=== PATIENT | female | born 1955 | race Caucasian/White ===

== ENCOUNTER → 2017-05-28 15:39 | Outpatient (CLI) | payer MEDICARE, MEDICAID, SELFPAY ==
--- NOTE | 2017-05-28 16:05 | RAD_ITS ---
STUDY: X-RAY - PELVIS AND RIGHT HIP REASON FOR EXAM: Female, 62 years old. Pain. Several falls. TECHNIQUE: Radiological exam, hip, unilateral, with pelvis when performed; 2 or 3 views. COMPARISON: None. FINDINGS: There is a non-specific bowel gas pattern. Normal visualized soft tissue structures. Normal bilateral iliac wings, sacroiliac joints and visualized sacrum. Normal bilateral superior and inferior pubic rami. Normal pubic symphysis. Normal bilateral ischial tuberosities. Normal visualized femoral head. Normal acetabulum. Normal hip joint. Calcifications along the surface of the greater trochanter may be from chronic trochanteric bursitis. RAD/Hip 2-3 Views with Pelvis IMPRESSION: No acute fracture or dislocation. Electronically Signed: Royal Mansfield MD at 0:01 EST , Service support ,
--- NOTE | 2017-05-28 16:06 | RAD_ITS ---
STUDY: X-RAY - LUMBAR SPINE REASON FOR EXAM: Female, 62 years old. Low back pain. Right hip pain. Falls. TECHNIQUE: 5 view(s) of the lumbar spine were obtained. COMPARISON: None FINDINGS: Normal lumbar lordosis. There is no substantial scoliosis. There is a normal alignment of the vertebrae. There is multilevel endplate spondylosis of the lumbar vertebrae. There is multi-level degenerative disc disease with multi-level disc space narrowing. There is no demonstrated fracture. The soft tissue structures are unremarkable. RAD/L/S Spine Min 4 Views IMPRESSION: Degenerative changes of the spine, as detailed above. No acute abnormality. Electronically Signed: Royal Mansfield MD at 23:59 EST , Service support ,
[2017-05-28 17:41] LABS: Absolute Neutrophil Count 3.2 X10^3/uL (2.0-7.7); Basophil# 0.03 X10^3/uL; Basophil% 0.4 % (0-1); Eosinophil# 0.14 X10^3/uL; Hematocrit 40.1 % (37-47); Hemoglobin 12.8 g/dl (12.0-15.0); Lymphocyte % 43.4 % (19-41); Mean Corp Hgb Conc 31.9 g/gl (32-36); Mean Corpuscular Hgb 30.8 pg (27.0-32.0); Mean Corpuscular Volume 96.6 fL (81-99); Mean Platelet Vol. 10.8 fl (6.2-12.0); Monocyte# 0.57 X10^3/uL; Monocyte% 8.2 % (0-10); Neutrophil # 3.17 X10^3/uL (2.7-7.7); Platelet Count 263 K/mm3 (150-450); RBC Distribution Width CV 12.6 % (11.6-14.6); RBC Distribution Width SD 43.4 fl (35.1-43.9); Red Blood Count 4.15 M/mm3 (4.2-5.4); White Blood Count 6.9 K/mm3 (4.4-11.0)
[2017-05-28 17:55] LABS: POSITIVE COUNT NO; POSITIVE DIFFERENTIAL NO; POSITIVE MORPHOLOGY NO
[2017-05-28 18:07] LABS: ALB/GLOB Ratio 1.2 RATIO (0.9-2.4); AST(SGOT) 15 U/L (15-37); Alanine Aminotransfer ALT/SGPT 26 U/L (13-56); Albumin, Serum 3.8 g/dL (3.2-5.0); Alkaline Phosphatase 110 U/L (45-117); Anion Gap 7 (5-15); BUN 20 mg/dL (7-18); BUN/Creat Ratio 18.5 RATIO (10-20); CRP 3.26 mg/L (0.0-3.0); Calcium,Total 8.7 mg/dL (8.5-10.1); Chloride 109 mmol/L (98-107); Creatinine, Serum 1.08 mg/dL (0.55-1.02); EST Glomerular Filtration Rate 54 mL/min (>60); Est Glom Filt Rate - Afr Amer 66 mL/min (>60); Globulin 3.3 g/dL (2.2-4.2); Glucose 83 mg/dL (74-106); Potassium 4.6 mmol/L (3.5-5.1); Protein, Total 7.1 g/dL (6.4-8.2); Sodium Level 139 mmol/L (136-145)
[2017-05-28 20:48] LABS: Erythrocyte Sedimentation Rate 6 mm/hr (0-30)
== END ==
PROVIDERS: Family Provider Family Medicine; PCP Family Medicine; Visit Provider Family Medicine
DX: M47.896 Other spondylosis, lumbar region (principal); M51.36 Other intervertebral disc degeneration, lumbar region; M48.061 Spinal stenosis, lumbar region without neurogenic claudication; M25.551 Pain in right hip; D72.9 Disorder of white blood cells, unspecified; Z51.81 Encounter for therapeutic drug level monitoring; Z79.899 Other long term (current) drug therapy
CPT/HCPCS: 36415; 72110; 73502; 80053; 85025; 85652; 86140

== ENCOUNTER → 2017-06-10 15:11 | Outpatient (CLI) | payer MEDICARE, MEDICAID, SELFPAY ==
--- NOTE | 2017-06-10 15:51 | MRI_ITS ---
STUDY: MRI LUMBAR SPINE WITHOUT CONTRAST REASON FOR EXAM: Female, 62 years old. RADICULOPATHY, RT LEG NUMBNESS, FREQUENT FALLS TECHNIQUE: Standardized fat and water weighted pulse sequences were obtained in the sagittal and axial planes. COMPARISON: None FINDINGS: T12-L1: Normal endplates. Normal disc height, hydration and morphology. Normal bilateral facet joints. Normal central canal and bilateral lateral recesses. Normal bilateral intervertebral neural foramina. Normal lumbar lordosis. There is no substantial scoliosis. Normal conus medullaris that terminates at the L1 level. L1-2: Endplate spondylosis. Decreased disc height and small circumferential disc bulge. Degenerative changes of the bilateral facet joints. Mild narrowing of the central canal and bilateral intervertebral neural foramina. L2-3: Endplate spondylosis. Decreased disc height and small circumferential disc bulge. Degenerative changes of the bilateral facet joints. Mild narrowing of the central canal and bilateral intervertebral neural foramina. L3-4: Endplate spondylosis. Decreased disc height and small circumferential disc bulge. Degenerative changes of the bilateral facet joints. Mild narrowing of the central canal and bilateral intervertebral neural foramina. L4-5: Endplate spondylosis. Decreased disc height and small circumferential disc bulge. Degenerative changes of the bilateral facet joints. 5 mm spondylolisthesis. Moderate narrowing of the central canal and bilateral intervertebral neural foramina. L5-S1: Endplate spondylosis. Decreased disc height and moderate circumferential disc bulge. Degenerative changes of the bilateral facet joints. Moderate narrowing of the central canal and severe narrowing of the bilateral intervertebral neural foramina. Normal visualized sacral ala. Normal visualized paraspinous soft tissue structures. MRI/Spine Lumbar (Routine) IMPRESSION: Multilevel degenerative changes, as described above. Electronically Signed: Afua Blanco MD at 7:02 EST Tel , Service support ,
== END ==
PROVIDERS: Family Provider Family Medicine; PCP Family Medicine; Visit Provider Family Medicine
DX: M54.16 Radiculopathy, lumbar region (principal); M47.897 Other spondylosis, lumbosacral region; M48.07 Spinal stenosis, lumbosacral region
CPT/HCPCS: 72148

== ENCOUNTER → 2017-12-02 13:37 | Outpatient (CLI) | payer MEDICARE, MEDICAID, SELFPAY ==
[2017-12-02 15:53] LABS: Vitamin B12 511 pg/mL (211-911)
[2017-12-02 15:59] LABS: ALB/GLOB Ratio 1.1 RATIO (0.9-2.4); AST(SGOT) 19 U/L (15-37); Alanine Aminotransfer ALT/SGPT 33 U/L (13-56); Albumin, Serum 3.8 g/dL (3.2-5.0); Alkaline Phosphatase 102 U/L (45-117); Anion Gap 13 (5-15); BUN 15 mg/dL (7-18); BUN/Creat Ratio 12.6 RATIO (10-20); Calcium,Total 8.4 mg/dL (8.5-10.1); Chloride 111 mmol/L (98-107); Creatinine, Serum 1.19 mg/dL (0.55-1.02); EST Glomerular Filtration Rate 49 mL/min (>60); Est Glom Filt Rate - Afr Amer 59 mL/min (>60); Globulin 3.4 g/dL (2.2-4.2); Glucose 111 mg/dL (74-106); Magnesium 1.8 mg/dL (1.6-2.6); Potassium 4.7 mmol/L (3.5-5.1); Protein, Total 7.2 g/dL (6.4-8.2); Sodium Level 142 mmol/L (136-145)
== END ==
PROVIDERS: Family Provider Family Medicine; PCP Family Medicine; Visit Provider Family Medicine
DX: Z51.81 Encounter for therapeutic drug level monitoring (principal); E53.8 Deficiency of other specified B group vitamins; M62.838 Other muscle spasm; R20.2 Paresthesia of skin
CPT/HCPCS: 36415; 80053; 82607; 83735

== ENCOUNTER → 2017-12-13 14:01 | Outpatient (CLI) | payer MEDICARE, MEDICAID, SELFPAY | PROVIDERS: Family Provider Family Medicine; PCP Family Medicine; Visit Provider Family Medicine | DX: M79.604 Pain in right leg (principal); I87.2 Venous insufficiency (chronic) (peripheral) | CPT/HCPCS: 93971 ==

== ENCOUNTER → 2018-02-14 13:04 | Outpatient (CLI) | payer MEDICARE, MEDICAID, SELFPAY ==
--- NOTE | 2018-02-14 13:09 | ADUL_ITS ---
Reason For Study: ATHEROSCLEROSIS W/ CLAUDICATION Right Velocities Common Iliac Artery, dist = 110 cm./sec. Common Femoral Artery, mid = 102 cm./sec. Supf Femoral Artery, prox = 111 cm./sec. Supf Femoral Artery, mid = 86 cm./sec. Supf Femoral Artery, dist. = 48 cm./sec. Profunda Femoral Artery = 58 cm./sec. Popliteal Artery, prox. = 48 cm./sec. Popliteal Artery, mid = 35 cm./sec. Popliteal Artery, dist = 46 cm./sec. Post. Tibial Artery, prox = 74 cm./sec. Post. Tibial Artery, mid = 61 cm./sec. Post. Tibial Artery, dist = 80 cm./sec. Peroneal Artery, prox = 31 cm./sec. Peroneal Artery, mid = 39 cm./sec. Peroneal Artery,dist = 29 cm./sec. Ant. Tibial Artery, prox = 45 cm./sec. Ant. Tibial Artery, mid = 48 cm./sec. Ant. Tibial Artery, dist = 48 cm./sec. Interpretation Summary 1. right leg with triphasic flow throuh and no stenosis. Ordering Physician: Gabe Dukes Referring Physician: ERNIE CHAMBERS Performed By: Marlena Guzman, RDCS, RVT
--- NOTE | 2018-02-19 10:58 | LEAS ---
Arterial Study - Arterial Study Arterial Study: Date of scan 02/14/[address] Dukes Interpretation: Right lower extremity has pulsatile flow with triphasic waveform noted at the ankle with an DOMINICK 1.21 and the PT 1.11 and the DP. Digit brachial index 0.68. Next Left lower extremity with again with triphasic flow noted at the ankle with an DOMINICK 1.2 with a PT 1.1 of the DP and a digit brachial index 0.62. Impression: 1. Bilateral lower extremities with no evidence of significant arterial occlusive disease at rest with an DOMINICK 1.21 on the right 1.20 on the left
== END ==
PROVIDERS: Family Provider Family Medicine; PCP Family Medicine; Referring Provider Surgery Vascular Surgery; Visit Provider Surgery Vascular Surgery
DX: I70.211 Atherosclerosis of native arteries of extremities with intermittent claudication, right leg (principal)
CPT/HCPCS: 93922; 93926

== ENCOUNTER → 2019-04-23 16:29 | Outpatient (CLI) | payer MEDICARE, MEDICAID, SELFPAY ==
[2019-04-23 18:13] LABS: OXY Internal Control LINE = VALID (VALID)
[2019-04-23 18:14] LABS: Oxycodone Drug Screen Positive (<100 ng/mL)
[2019-04-23 18:15] LABS: Vista UDS pH Range 5
[2019-04-23 18:36] LABS: Amphetamine Urine VISTA NEGATIVE (<1000 ng/mL); Barbiturate Urine VISTA POSITIVE (< 200 ng/mL); Benzodiazepine Urine VISTA POSITIVE (< 200 ng/mL); Cocaine Urine VISTA NEGATIVE (< 300 ng/mL); Ecstacy Urine VISTA NEGATIVE (< 500 ng/mL); Methadone Urine VISTA NEGATIVE (< 300 ng/mL); PCP Urine VISTA NEGATIVE (< 25 ng/mL); THC Urine VISTA NEGATIVE (< 50 ng/mL)
== END ==
PROVIDERS: Family Provider Family Medicine; PCP Family Medicine; Visit Provider Family Medicine
DX: Z79.891 Long term (current) use of opiate analgesic (principal)
CPT/HCPCS: 80307; 80346; 80365; G0480

== ENCOUNTER 2019-12-21 13:10 | Emergency (ER) | payer MEDICARE, MEDICAID, SELFPAY ==
[2019-12-21 13:11] VITALS: BP 172/87; PULSE 94; RESP 22; TEMP 36.3; O2SAT 100; BMI 36.6
--- NOTE | 2019-12-21 13:31 | ED.DCSUM_ITS ---
- ER Visit Summary Date of Service: 12/21/19 Chief Complaint: Right shoulder pain History of Present Illness: The patient is a 64 F who presents with right shoulder pain that has been constant for the past 2 months. Patient states it is gradually getting worse. Patient describes her pain is sharp. Patient states the pain is worse with movement. Patient states she saw her primary care physician for this who told her she had a torn rotator cuff. Patient states she has not tried any physical therapy. Patient states she has not seen her orthopedic surgeon for this. Patient denies any paresthesias or weakness. Patient denies any trauma or injury. Patient states she has been taking her Percocet and Valium for this with no relief. Physical Examination: Vital signs are stable. Patient is afebrile. Patient is in no acute distress. Musculoskeletal exam reveals diffuse tenderness over the right shoulder. There is no edema or ecchymosis. There is no deformity noted. There is no bony crepitance or step-off. Range of motion was limited in all motions of the right shoulder secondary to pain. There is no tenderness over the cervical spine. There is no tenderness over the elbow. Radial pulses are equal bilaterally. Sensation was intact light touch in the radial, median, ulnar, and axillary areas. Test Results: X-rays of the right shoulder were obtained. There are degenerative changes. There is no acute fracture or dislocation. This was interpreted by the radiologist and reviewed by myself. Emergency Department Course and Treatment: Patient was given an injection of morphine. Patient was feeling better on reevaluation. Patient was given a sling for comfort. Patient was instructed to continue her Percocet and Valium as prescribed. Patient was instructed to follow-up with her primary care physician and orthopedist in 5 to 7 days. Patient understood and was agreeable with the plan. All questions were answered. Disposition: Discharge home Impression: 1. Right shoulder pain This note was generated with [employer] dictation software. It may contain incorrect words, spelling, and punctuation that were not noted in review of the chart p rior to signing ED Disposition - Plan for ED Patient: Disposition: Home or Assisted Living Diagnosis: Right shoulder pain Instructions: ED Shoulder Pain Uncertain Cause Referrals: Deloris Bradshaw DO [Primary Care Provider] - 5-7 Days
[2019-12-21] MEDS: Morphine 4 MG/ML Syringe IM (13:39)
--- NOTE | 2019-12-21 13:42 | RAD_ITS ---
STUDY: X-RAY - RIGHT SHOULDER REASON FOR EXAM: Female, 64 years old. RIGHT SHOULDER PAIN THAT HAS BEEN PROGRESSIVELY BEEN GETTING WORSE TECHNIQUE: 3 view(s) of the shoulder. COMPARISON: 02/28/2016. FINDINGS: No acute fracture, dislocation or osseous destruction. Osteopenia. Moderate acromioclavicular joint arthrosis. Mild glenohumeral joint arthrosis. No significant soft tissue swelling. RAD/Shoulder min 2 Views IMPRESSION: Right shoulder intact Degenerative changes, as above Electronically Signed: Rafy Brandon DO at 14:00 EDT Tel , Service support ,
== END 2019-12-21 14:22 | disposition home or self-care (01) ==
PROVIDERS: Emergency Provider Emergency Medicine; PCP Family Medicine
DX: M25.511 Pain in right shoulder (principal); F17.200 Nicotine dependence, unspecified, uncomplicated; I10 Essential (primary) hypertension; E78.00 Pure hypercholesterolemia, unspecified; Z79.82 Long term (current) use of aspirin; Z79.899 Other long term (current) drug therapy
CPT/HCPCS: 73030; 96372; 99283

== ENCOUNTER → 2020-04-12 11:21 | Outpatient (CLI) | payer MEDICARE, MEDICAID, SELFPAY ==
[2020-04-12 15:18] LABS: Absolute Lymphocyte Count 2.94 X10^3/uL (0.83-4.51); Absolute Neutrophil Count 4.6 X10^3/uL (2.0-7.7); Basophil# 0.06 X10^3/uL; Basophil% 0.7 % (0-1); Eosinophil# 0.18 X10^3/uL; Eosinophils% 2.1 % (0-5); Hematocrit 39.4 % (37-47); Hemoglobin 12.5 g/dL (12.0-15.0); Lymphocyte # 2.94 X10^3/ul (4.0); Lymphocyte % 34.6 % (19-41); Mean Corp Hgb Conc 31.7 g/dL (32-36); Mean Corpuscular Hgb 30.2 pg (27.0-32.0); Mean Corpuscular Volume 95.2 fL (81-99); Mean Platelet Vol. 9.7 fl (6.2-12.0); Monocyte# 0.73 X10^3/uL; Monocyte% 8.6 % (0-10); NRBC Flagged by Analyzer 0 % (0-5); Neutrophil # 4.57 X10^3/uL (2.7-7.7); Neutrophil % 53.8 % (47-70); Platelet Count 296 K/mm3 (150-450); RBC Distribution Width CV 13.1 % (11.6-14.6); RBC Distribution Width SD 45.9 fl (35.1-43.9); Red Blood Count 4.14 M/mm3 (4.2-5.4); White Blood Count 8.5 K/mm3 (4.4-11.0)
[2020-04-12 15:26] LABS: ALB/GLOB Ratio 1.1 RATIO (0.9-2.4); AST(SGOT) 17 U/L (15-37); Alanine Aminotransfer ALT/SGPT 23 U/L (13-56); Albumin, Serum 3.6 g/dL (3.2-5.0); Alkaline Phosphatase 96 U/L (45-117); Anion Gap 5 (5-15); BUN 19 mg/dL (7-18); BUN/Creat Ratio 15.8 RATIO (10-20); Calcium,Total 8.4 mg/dL (8.5-10.1); Chloride 110 mmol/L (98-107); EST Glomerular Filtration Rate 48 mL/min (>60); Est Glom Filt Rate - Afr Amer 58 mL/min (>60); Globulin 3.2 g/dL (2.2-4.2); Glucose 77 mg/dL (74-106); Potassium 4.5 mmol/L (3.5-5.1); Protein, Total 6.8 g/dL (6.4-8.2); Sodium Level 138 mmol/L (136-145)
== END ==
PROVIDERS: PCP Family Medicine; Visit Provider Family Medicine
DX: Z01.818 Encounter for other preprocedural examination (principal)
CPT/HCPCS: 36415; 80053; 85025

== ENCOUNTER → 2021-02-20 14:02 | Outpatient (CLI) | payer MEDICARE, MEDICAID, SELFPAY ==
[2021-02-20 14:51] LABS: Absolute Lymphocyte Count 2.43 X10^3/uL (0.83-4.51); Absolute Neutrophil Count 3.9 X10^3/uL (2.0-7.7); Basophil# 0.04 X10^3/uL; Basophil% 0.6 % (0-1); Eosinophil# 0.21 X10^3/uL; Eosinophils% 2.9 % (0-5); Hematocrit 32.8 % (37-47); Hemoglobin 10.8 g/dL (12.0-15.0); Lymphocyte # 2.43 X10^3/ul (0.83-4.51); Lymphocyte % 33.4 % (19-41); Mean Corp Hgb Conc 32.9 g/dL (32-36); Mean Corpuscular Hgb 30.2 pg (27.0-32.0); Mean Corpuscular Volume 91.6 fL (81-99); Mean Platelet Vol. 10.4 fl (6.2-12.0); Monocyte# 0.68 X10^3/uL; Monocyte% 9.4 % (0-10); NRBC Flagged by Analyzer 0 % (0-5); Neutrophil # 3.89 X10^3/uL (2.7-7.7); Neutrophil % 53.4 % (47-70); Platelet Count 274 K/mm3 (150-450); RBC Distribution Width CV 12.5 % (11.6-14.6); RBC Distribution Width SD 41.9 fl (35.1-43.9); Red Blood Count 3.58 M/mm3 (4.2-5.4); White Blood Count 7.3 K/mm3 (4.4-11.0)
[2021-02-20 14:58] LABS: Erythrocyte Sedimentation Rate 13 mm/hr (0-30)
[2021-02-20 15:10] LABS: AST(SGOT) 18 U/L (15-37); Alanine Aminotransfer ALT/SGPT 23 U/L (13-56); Alkaline Phosphatase 125 U/L (45-117); Anion Gap 5 (5-15); BUN 11 mg/dL (7-18); BUN/Creat Ratio 10.2 RATIO (10-20); CPK Total, Creatine Kinase 63 U/L (26-192); Calcium,Total 8.4 mg/dL (8.5-10.1); Chloride 109 mmol/L (98-107); Creatinine, Serum 1.08 mg/dL (0.55-1.02); EST Glomerular Filtration Rate 54 mL/min (>60); Est Glom Filt Rate - Afr Amer 65 mL/min (>60); Glucose 131 mg/dL (74-106); Potassium 4.2 mmol/L (3.5-5.1); Sodium Level 139 mmol/L (136-145)
== END ==
PROVIDERS: PCP Family Medicine
DX: T84.89XA Other specified complication of internal orthopedic prosthetic devices, implants and grafts, initial encounter (principal)
CPT/HCPCS: 80053; 82550; 85025; 85652

== ENCOUNTER → 2022-06-20 | Outpatient (CLI) | payer MEDICARE, MEDICAID, SELFPAY ==
[2022-06-20 15:35] LABS: Absolute Lymphocyte Count 2.71 X10^3/uL (0.83-4.51); Absolute Neutrophil Count 4.7 X10^3/uL (2.0-7.7); Basophil# 0.05 X10^3/uL; Basophil% 0.6 % (0-1); Eosinophil# 0.15 X10^3/uL; Eosinophils% 1.8 % (0-5); Hematocrit 39.3 % (37-47); Hemoglobin 12.6 g/dL (12.0-15.0); Lymphocyte # 2.71 X10^3/ul (0.83-4.51); Lymphocyte % 32.3 % (19-41); Mean Corp Hgb Conc 32.1 g/dL (32-36); Mean Corpuscular Hgb 31.3 pg (27.0-32.0); Mean Corpuscular Volume 97.8 fL (81-99); Mean Platelet Vol. 9.8 fl (6.2-12.0); Monocyte# 0.78 X10^3/uL; Monocyte% 9.3 % (0-10); NRBC Flagged by Analyzer 0 % (0-5); Neutrophil # 4.68 X10^3/uL (2.7-7.7); Neutrophil % 55.6 % (47-70); Platelet Count 290 K/mm3 (150-450); RBC Distribution Width CV 13.8 % (11.6-14.6); RBC Distribution Width SD 50.3 fl (35.1-43.9); Red Blood Count 4.02 M/mm3 (4.2-5.4); White Blood Count 8.4 K/mm3 (4.4-11.0)
[2022-06-20 15:36] LABS: Erythrocyte Sedimentation Rate 4 mm/hr (0-30)
[2022-06-20 15:45] LABS: ALB/GLOB Ratio 1.1 RATIO (0.9-2.4); AST(SGOT) 18 U/L (15-37); Alanine Aminotransfer ALT/SGPT 23 U/L (13-56); Albumin, Serum 3.8 g/dL (3.2-5.0); Alkaline Phosphatase 176 U/L (45-117); Anion Gap 6 (5-15); BUN 17 mg/dL (7-18); BUN/Creat Ratio 12.4 RATIO (10-20); CRP 3.48 mg/L (0.0-3.0); Calcium,Total 8.8 mg/dL (8.5-10.1); Chloride 108 mmol/L (98-107); Creatinine, Serum 1.37 mg/dL (0.55-1.02); EST Glomerular Filtration Rate 41 mL/min (>60); Est Glom Filt Rate - Afr Amer 49 mL/min (>60); Free T3 2.6 pg/mL (2.18-3.98); Globulin 3.5 g/dL (2.2-4.2); Glucose 107 mg/dL (74-106); Protein, Total 7.3 g/dL (6.4-8.2); Sodium Level 138 mmol/L (136-145); T4 Free Direct 0.87 ng/dL (0.76-1.46); Thyroid Stim Hormone (TSH) 2.69 uIU/mL (0.358-3.74)
[2022-06-20 15:54] LABS: Vitamin D,25 Hydroxy 14.1 ng/mL
== END | disposition home or self-care (01) ==
LOC: BFHLAB 13:08
PROVIDERS: PCP Family Medicine; Visit Provider Family Medicine
DX: E03.9 Hypothyroidism, unspecified (principal); E55.9 Vitamin D deficiency, unspecified; M25.50 Pain in unspecified joint; Z51.81 Encounter for therapeutic drug level monitoring
CPT/HCPCS: 36415; 80053; 82306; 84439; 84443; 84481; 85025; 85652; 86140

== ENCOUNTER → 2022-10-24 | Outpatient (CLI) | payer MEDICARE, MEDICAID, SELFPAY ==
[2022-10-24 12:46] LABS: Absolute Neutrophil Count 4.1 X10^3/uL (2.0-7.7); Basophil# 0.05 X10^3/uL; Basophil% 0.6 % (0-1); Eosinophil# 0.24 X10^3/uL; Hematocrit 39.7 % (37-47); Hemoglobin 12.6 g/dL (12.0-15.0); Lymphocyte % 35.6 % (19-41); Mean Corp Hgb Conc 31.7 g/dL (32-36); Mean Corpuscular Hgb 32.1 pg (27.0-32.0); Mean Platelet Vol. 9.7 fl (6.2-12.0); Monocyte# 0.64 X10^3/uL; Monocyte% 8.1 % (0-10); NRBC Flagged by Analyzer 0 % (0-5); Neutrophil # 4.11 X10^3/uL (2.7-7.7); Neutrophil % 52.3 % (47-70); Platelet Count 281 K/mm3 (150-450); RBC Distribution Width CV 13.6 % (11.6-14.6); RBC Distribution Width SD 51.3 fl (35.1-43.9); Red Blood Count 3.93 M/mm3 (4.2-5.4); White Blood Count 7.9 K/mm3 (4.4-11.0)
[2022-10-24 13:19] LABS: Vitamin D,25 Hydroxy 61.8 ng/mL
[2022-10-24 13:48] LABS: AST(SGOT) 16 U/L (15-37); Alanine Aminotransfer ALT/SGPT 16 U/L (13-56); Albumin, Serum 3.5 g/dL (3.2-5.0); Alkaline Phosphatase 179 U/L (45-117); Anion Gap 6 (5-15); BUN 22 mg/dL (7-18); BUN/Creat Ratio 13.7 RATIO (10-20); Calcium,Total 8.3 mg/dL (8.5-10.1); Chloride 114 mmol/L (98-107); Creatinine, Serum 1.61 mg/dL (0.55-1.02); EST Glomerular Filtration Rate 34 mL/min (>60); Est Glom Filt Rate - Afr Amer 41 mL/min (>60); Globulin 3.4 g/dL (2.2-4.2); Glucose 84 mg/dL (74-106); Potassium 4.3 mmol/L (3.5-5.1); Protein, Total 6.9 g/dL (6.4-8.2); Sodium Level 140 mmol/L (136-145); T4 Free Direct 0.81 ng/dL (0.76-1.46); T4 Total, Thyroxin 7.3 ug/dL (4.8-13.9); Thyroid Stim Hormone (TSH) 3.35 uIU/mL (0.358-3.74)
[2022-10-26 07:08] LABS: Anti-Thyroglobulin AB < 1.0 IU/mL (0.0-0.9); Thyroglobulin, Serum Qt. 24.3 ng/mL (1.5-38.5); Thyroid Peroxidase AB 28 IU/mL (0-34); Thyroxin Bind Glob (TBG) 17 ug/mL (13-39)
== END | disposition home or self-care (01) ==
LOC: BFHLAB 10:53
PROVIDERS: PCP Family Medicine; Referring Provider Family Medicine; Visit Provider Family Medicine
DX: R94.6 Abnormal results of thyroid function studies (principal); E55.9 Vitamin D deficiency, unspecified; Z51.81 Encounter for therapeutic drug level monitoring
CPT/HCPCS: 36415; 80053; 82306; 84432; 84436; 84439; 84442; 84443; 84481; 85025; 86376; 86800

== ENCOUNTER → 2023-05-16 | Outpatient (CLI) | payer MEDICARE, MEDICAID, SELFPAY ==
[2023-05-16 17:48] LABS: Absolute Neutrophil Count 4.9 X10^3/uL (2.0-7.7); Basophil# 0.06 X10^3/uL; Basophil% 0.7 % (0-1); Eosinophil# 0.13 X10^3/uL; Eosinophils% 1.6 % (0-5); Hematocrit 39.4 % (37-47); Hemoglobin 12.3 g/dL (12.0-15.0); Lymphocyte % 29.2 % (19-41); Mean Corp Hgb Conc 31.2 g/dL (32-36); Mean Corpuscular Hgb 31.5 pg (27.0-32.0); Mean Corpuscular Volume 100.8 fL (81-99); Mean Platelet Vol. 10.4 fl (6.2-12.0); Monocyte# 0.62 X10^3/uL; Monocyte% 7.5 % (0-10); NRBC Flagged by Analyzer 0 % (0-5); Neutrophil # 4.93 X10^3/uL (2.7-7.7); Platelet Count 287 K/mm3 (150-450); RBC Distribution Width CV 12.4 % (11.6-14.6); RBC Distribution Width SD 45.9 fl (35.1-43.9); Red Blood Count 3.91 M/mm3 (4.2-5.4); White Blood Count 8.2 K/mm3 (4.4-11.0)
[2023-05-16 18:28] LABS: ALB/GLOB Ratio 0.9 RATIO (0.9-2.4); AST(SGOT) 15 U/L (15-37); Alanine Aminotransfer ALT/SGPT 21 U/L (13-56); Albumin, Serum 3.6 g/dL (3.2-5.0); Alkaline Phosphatase 131 U/L (45-117); Anion Gap 4 (5-15); BUN 25 mg/dL (7-18); BUN/Creat Ratio 15.5 RATIO (10-20); Calcium,Total 8.6 mg/dL (8.5-10.1); Chloride 112 mmol/L (98-107); Creatinine, Serum 1.61 mg/dL (0.55-1.02); EST Glomerular Filtration Rate 34 mL/min (>60); Est Glom Filt Rate - Afr Amer 41 mL/min (>60); Free T3 1.8 pg/mL (2.18-3.98); Globulin 3.8 g/dL (2.2-4.2); Glucose 97 mg/dL (74-106); Potassium 4.3 mmol/L (3.5-5.1); Protein, Total 7.4 g/dL (6.4-8.2); Sodium Level 135 mmol/L (136-145); T4 Free Direct 0.74 ng/dL (0.76-1.46)
== END | disposition home or self-care (01) ==
PROVIDERS: PCP Family Medicine; Visit Provider Family Medicine
DX: E03.9 Hypothyroidism, unspecified (principal); R73.01 Impaired fasting glucose; Z51.81 Encounter for therapeutic drug level monitoring
CPT/HCPCS: 36415; 80053; 83036; 84439; 84443; 84481; 85025

== ENCOUNTER → 2023-05-28 | Outpatient (CLI) | payer MEDICARE, MEDICAID, SELFPAY ==
--- NOTE | 2023-05-28 13:07 | BI_ITS ---
MAMMOGRAPHY - BILATERAL SCREENING REASON FOR EXAM: Female, 68 years old. Routine annual screening examination. PERTINENT HISTORY: Non-contributory. TECHNIQUE: Digital bilateral breast car (3D mammographic acquisition) in the CC and MLO projections. 2-D mediolateral oblique (MLO) and craniocaudad (CC) views of both breasts were obtained. CAD: Full Field Digital Mammography with Computer Added Detection was performed. COMPARISON: Comparison is made with prior study dated October 20, 2013. FINDINGS: Breast Composition: The breasts are almost entirely fatty. There are no dominant masses or suspicious calcifications. Stable small benign-appearing bilateral axillary lymph nodes. No other significant abnormalities are identified. There has been no significant change since the prior study. BI/SCRN MAMM (CAD)W/CAR BILAT IMPRESSION: Stable bilateral screening mammogram. Yearly follow-up mammogram recommended. (A) ASSESSMENT CATEGORY: BIRADS Category 2: Benign. A letter regarding these results will be sent to the patient by the facility within 30 days. Approximately 10% of breast cancers are not detected by mammography. A normal mammogram should not delay biopsy of a clinically suspicious abnormality. [id number] Electronically Signed: Arthur Cabrera MD at 14:22 EST ,
--- NOTE | 2023-05-28 13:11 | BD_ITS ---
STUDY: DUAL ENERGY X-RAY ABSORPTIOMETRY / DXA REASON FOR EXAM: Female, 68 years old. M810 TECHNIQUE: Bone Mineral Density (BMD) measurements of lumbar spine and bilateral hips were obtained. COMPARISON: None. FINDINGS: Lumbar Spine (L1-L4): g/cm2 (0.922) / T-score (-1.0) / Z-score (1.0) Findings are suggestive of osteopenia with a low fracture risk. Left Femur Total: g/cm2 (0.756) / T-score (-1.5) / Z-score (-0.1) Left Femoral Neck: g/cm2 (0.724) / T-score (-1.1) / Z-score (0.6) Right Femur Total: g/cm2 (0.811) / T-score (-1.1) / Z-score (0.4) Right Femoral Neck: g/cm2 (0.640) / T-score (-1.9) / Z-score (-0.1) BD/Dexa Bone Density Study IMPRESSION: The patient is considered osteopenic as outlined below according to World Ronen Organization (WHO) criteria with a moderate fracture risk. Reference Information: The T-score is the number of standard deviations above or below the standard which is normal for young adults at their peak bone mineral density. The World Health Organization (WHO) interprets the T-scores as follows: Above -1 Normal bone density Between -1 and -2.5 Osteopenia Equal to / or below -2.5 Osteoporosis As a practical clinical guideline, osteopenia may be graded as follows: Mild -1 through -1.5 Moderate -1.6 through -2.0 Severe -2.1 through -2.4 The Z-score is the number of standard deviations above or below age-matched controls. A Z-score of less than -1.5 would be considered abnormal. References: 1. NIH Osteoporosis and Related Bone Diseases www osteo.org 2. International Society for Clinical Densitometry www iscd.org 3. National Osteoporosis Foundation www nof.org Electronically Signed: Arthur Cabrera MD at 14:39 EST ,
--- OUTSIDE RECORDS SUMMARY | 2023-05-28 14:40 | XMS RPT_ITS | CCD ---
Author Name Unknown Address [address] [place] [address] Organization [facility] Care Team Providers Care Surgical Dental Assistant Name Role Phone ERNIE CHAMBERS Primary Care Unavailable ACUSTING Admitting Unavailable ACUSTING Attending Unavailable ERNIE CHAMBERS Attending Unavailable ERNIE CHAMBERS Admitting Unavailable ERNIE CHAMBERS Primary Care Unavailable Problems Active Problems Problem Classification Problem Date Documented Date Episodic/Chronic Osteoarthritis (1 source) Primary osteoarthritis, right shoulder; Translations: [PRIMARY OSTEOARTHRITIS RT SHOULDER] Onset: 02-11-2020 Chronic Other connective tissue disease (1 source) Unspecified rotator cuff tear or rupture of right shoulder, not specified as traumatic; Translations: [UNS ROT CUFF TEAR/RUPT RT SHOULDER] Onset: 02-11-2020 Episodic Other connective tissue disease (1 source) Incomplete rotator cuff tear or rupture of right shoulder, not specified as traumatic; Translations: [INCMPL ROT CUFF TEAR/RUPT RT SHLDR] Onset: 02-11-2020 Episodic Other connective tissue disease (1 source) Unspecified disorder of synovium and tendon, right shoulder; Translations: [UNS D/O SYNOVIUM TENDON RT SHOULDER] Onset: 02-11-2020 Episodic Spondylosis; intervertebral disc disorders; other back problems (1 source) Other spondylosis with radiculopathy, lumbar region; Translations: [OTH SPONDYLS RADICULOPATHY LUMB RGN] Onset: 10-22-2019 Chronic Spondylosis; intervertebral disc disorders; other back problems (1 source) Spinal stenosis, lumbar region without neurogenic claudication; Translations: [SPINAL STENOSIS LUMBAR REGION NO NC] Onset: 10-22-2019 Past or Other Problems Problem Classification Problem Date Documented Da te Episodic/Chronic Spondylosis; intervertebral disc disorders; other back problems (4 sources) Sciatica, left side; Translations: [Intervertebral disc disorders with radiculopathy, lumbar region] Onset: 10-22-2019 Episodic Results Test Name Value Interpretation Reference Range Facil ity Encounters Encounter Date Encounter Type Care Provider Facility Start: 02-09-2020 End: 02-10-2020 Patient encounter procedure ERNIE CHAMBERS [facility] Start: 10-21-2019 End: 10-22-2019 Patient encounter procedure ERNIE CHAMBERS [facility] Payers Date Payer Category Payer Private Health Insurance [id number] 1960 Medicaid [id number] 1955 Unknown [id number] 1955 Unknown [id number] Summary Purpose Family History No Family History Records Found Advance Directives No Advanced Directives Records Found Additional Source Comments INFORMATION SOURCE (unrecogn ized section and content) FOR RECORDS PERTAINING TO PATIENTS WHO ARE OR HAVE BEEN ENROLLED IN A CHEMICAL DEPENDENCY/SUBSTANCEABUSE PROGRAM, SOME INFORMATION MAY BE OMITTED. This clinical summary was aggregated from multiple sources. Caution should be exercised in using it in the provision of clinical care. This summary normalizes information from multiple sources, and as a consequence, information in this document may materially change the coding, format and clinical context of patient data. In addition, data may be omitted in some cases. CLINICAL DECISIONS SHOULD BE BASED ON THE PRIMARY CLINICAL RECORDS. [employer] provides no warranty or guarantee of the accuracy or completeness of information in this document.
== END | disposition home or self-care (01) ==
LOC: OPBD 13:06
PROVIDERS: PCP Family Medicine; Referring Provider Family Medicine; Visit Provider Family Medicine
DX: Z12.31 Encounter for screening mammogram for malignant neoplasm of breast (principal); M81.0 Age-related osteoporosis without current pathological fracture
CPT/HCPCS: 77063; 77067; 77080

== ENCOUNTER 2023-07-11 23:24 | Emergency (ER) | payer MEDICARE, MEDICAID, SELFPAY ==
[2023-07-11 23:27] VITALS: BP 105/85; PULSE 92; RESP 12; TEMP 36.6; O2SAT 98; BMI 40.9
[2023-07-11 23:33] VITALS: BP 115/98
--- NOTE | 2023-07-11 23:40 | RAD_ITS ---
EXAM: XR RIGHT ANKLE COMPLETE, 3 OR MORE VIEWS CLINICAL INDICATION: injury TECHNIQUE: Frontal, lateral and oblique views of the right ankle. COMPARISON: No relevant prior studies available. FINDINGS: BONES/JOINTS: Old avulsion injury from the tip of the fibula. No acute fracture. No subluxation. Normal alignment. Preservation of the joint space. No sclerotic or destructive changes observed. SOFT TISSUES: Soft tissue swelling laterally. No radiopaque foreign body. RAD/Ankle min 3 Views IMPRESSION: 1. No acute osseous injury is identified. 2. Soft tissue swelling laterally. 3. Old avulsion injury from the tip of the fibula. Electronically Signed: Dario Baer MD at 0:05 EDT ,
--- NOTE | 2023-07-11 23:41 | ED.VIS.LOWEX ---
HPI History of Present Illness Chief Complaint: Lower Extremity Injury Detail of Chief Complaint: Right ankle injury Informant: patient Narrative Narrative: Patient present secondary to right ankle injury. She states she stood from her recliner tonight about an hour prior to arrival and rolled her right ankle. She has pain around the right ankle and has not been able to bear weight since that time. She denies any other injury. She has not taken anything for pain. [facility] Medical History Anxiety Asthma COPD (chronic obstructive pulmonary disease) Hyperlipidemia Hypertension Hypothyroidism Muscle spasm Home Medications multivitamin with folic acid 400 mcg tablet (Thera) 1 tab PO DAILY 02/03/14 [History Last Taken 08/27/14] pravastatin 40 mg tablet 20 mg PO DAILY 08/27/14 [History Last Taken 08/27/14] aspirin 81 mg chewable tablet 81 mg PO DAILY@0800 ##30 09/02/14 [Rx Last Taken Unknown] metoprolol tartrate 25 mg tablet 25 mg PO BID #60 tabs 09/02/14 [Rx Last Taken 05/17/15 09:00] pantoprazole 40 mg tablet,delayed release 40 mg PO DAILY ##20 09/02/14 [Rx Last Taken 05/17/15 09:00] trnekrtamo-raqqiaujzolez-tjsmfzwy 50 mg-300 mg-40 mg capsule (Fioricet) 2 cap PO TID PRN PRN Moderate Pain 03/29/15 [History Last Taken Unknown] Beclomethasone Diprop Inhaler [Qvar 80 Mcg Inhaler] 2 puff inhalation BID 09/09/16 [History Last Taken Unknown] oxycodone-acetaminophen 5 mg-325 mg tablet 1 tab PO Q6H PRN PRN pain #14 tabs 04/11/17 [Rx Last Taken Unknown] diazepam 5 mg tablet 10 mg PO BID PRN PRN Anxiety/Agitation 12/21/19 [History Last Taken Unknown] hydrocodone-acetaminophen 5-325mg 5mg-325mg 1 tab PO Q6H PRN PRN Pain 3 days #10 TABLETS 07/12/23 [Rx Last Taken Unknown] Allergy/AdvReac Type Severity Reaction Status Date / Time celecoxib [From Celebrex] Allergy Hives Verified 07/11/23 23:27 naproxen Allergy Hives Verified 07/11/23 23:27 baclofen AdvReac Nausea Verified 07/11/23 23:27 Social History Smoking Status: Heavy Smoker (>10/day) ROS ROS ED Constitutional Constitutional ED: Denies chills or fever(s) Eyes Eyes: Denies discharge from eye(s) ENT ENT ED: Denies discharge from eye(s), rhinorrhea or sore throat Cardiovascular Cardiovascular: Denies chest pain or palpitations Respiratory/Chest Respiratory/Chest: Denies dyspnea Gastrointestinal Gastrointestinal: Denies abdominal pain, nausea or vomiting Genitourinary Genitourinary ED: Denies difficulty urinating or dysuria Musculoskeletal Musculoskeletal: Reports extremity pain; Denies back pain Integumentary Denies Abrasions or rash Neurologic Neurologic: Reports weakness; Denies headache(s) Allergic/Immunologic Allergic/Immunologic ED: Denies lip swelling or urticaria EXAM Physical Exam Const Vital Signs: 07/11/23 23:27 07/11/23 23:33 Temperature 97.9 F Temperature Source Temporal Pulse Rate 92 Respiratory Rate 12 Blood Pressure 105/85 H 115/98 H Blood Pressure Mean 91 103 Pulse Ox 98 Oxygen Delivery Method Room Air Positive well nourished and well developed General Appearance ED: well developed HEENT Reports moist mucous membranes Neck full ROM Chest Wall inspection of chest normal and palpation of chest normal Resp normal respiratory effort Resp Narrative: Mild expiratory wheezes bilaterally. Cardio regular rate and regular rhythm GI non-tender Extremity Extremity Narrative: Tenderness palpation with edema to the lateral malleolus of the right ankle. No tenderness over the foot itself. Strong distal pulses with good cap refill. No tenderness of the proximal fibula or knee. Neuro oriented x3 MDM MDM MDM Narrative Medical decision making narrative: Patient given a dose of [place] for pain as she does have allergy to NSAIDs. Right ankle x-ray obtained to evaluate for potential fracture. Differential diagnosis includes sprain, strain, contusion. Radiography Diagnostic Testing: Clinical Impression(s) from Imaging Studies Ankle X-Ray 07/11/23 23:40 IMPRESSION: 1. No acute osseous injury is identified. 2. Soft tissue swelling laterally. 3. Old avulsion injury from the tip of the fibula. Electronically Signed: Dario Baer MD at 0:05 EDT , Treatment and Re-Evaluation Narrative: Right ankle x-ray per my interpretation feels no obvious acute fracture. Radiology interpretation reviewed and agrees. Test results discussed with the patient. She will be given an air stirrup splint. She feels that with this she will be able to get around with her walker. I will send a short course of [place] to the pharmacy for her for pain control. She is referred to podiatry if not improving. Discharge Plan Triage Chief Complaint: Lower Extremity Injury ED Provider: Sofya Rodriguez Dx/Rx/DC Orders Clinical Impression: Right ankle sprain Instructions: ED Ankle Sprain (Adult) Prescriptions: New hydrocodone-acetaminophen 5-325 mg tablet 1 tab PO Q6H PRN PRN (Reason: Pain) 3 Days Qty: 10 0RF No Action multivitamin with folic acid [Thera] 1 TABLET tablet 1 tab PO DAILY Patient Comments: supplement pravastatin 40 MG tablet 20 mg PO DAILY Patient Comments: cholesterol pantoprazole 40 MG tablet 40 mg PO DAILY Qty: 20 0RF Patient Comments: acid in stomach aspirin 81 MG tablet,chewable 81 mg PO DAILY@0800 Qty: 30 0RF Patient Comments: blood thinner metoprolol tartrate 25 MG tablet 25 mg PO BID Qty: 60 0RF dyhonfdjyv-erqmwmirfowhi-tndi [Fioricet] 1 EACH capsule 2 cap PO TID PRN PRN (Reason: Moderate Pain) Beclomethasone Diprop Inhaler [Qvar 80 Mcg Inhaler] 1 PUFF inhaler 2 puff inhalation BID oxycodone-acetaminophen 1 TABLET tablet 1 tab PO Q6H PRN PRN (Reason: pain) Qty: 14 0RF diazepam 5 MG tablet 10 mg PO BID PRN PRN (Reason: Anxiety/Agitation) Primary Care Provider: Deloris Bradshaw Referrals: Deloris Bradshaw DO [Primary Care Provider] - Honorio Robins DPM [Med Staff - Active Staff] - As Needed Disposition Disposition: Home, Self Care
[2023-07-11] MEDS: HYDROcodone Bitartrate/Apap 5/325 Tablet PO (23:53)
[2023-07-12 00:28] VITALS: BP 102/73; PULSE 78; RESP 17; TEMP 36.4; O2SAT 100
== END 2023-07-12 00:43 | disposition home or self-care (01) ==
PROVIDERS: Emergency Provider Emergency Medicine; PCP Family Medicine; Visit Provider Emergency Medicine
DX: S93.401A Sprain of unspecified ligament of right ankle, initial encounter (principal); J44.9 Chronic obstructive pulmonary disease, unspecified; F17.200 Nicotine dependence, unspecified, uncomplicated; X58.XXXA Exposure to other specified factors, initial encounter
CPT/HCPCS: 73610; 99283

== ENCOUNTER → 2023-08-06 | Outpatient (CLI) | payer MEDICARE, MEDICAID, SELFPAY ==
[2023-08-06 19:14] LABS: AST(SGOT) 14 U/L (15-37); Alanine Aminotransfer ALT/SGPT 16 U/L (13-56); Albumin, Serum 3.4 g/dL (3.2-5.0); Alkaline Phosphatase 149 U/L (45-117); Anion Gap 8 (5-15); BUN 21 mg/dL (7-18); BUN/Creat Ratio 12.5 RATIO (10-20); Calcium,Total 8.2 mg/dL (8.5-10.1); Chloride 113 mmol/L (98-107); Creatinine, Serum 1.68 mg/dL (0.55-1.02); EST Glomerular Filtration Rate 32 mL/min (>60); Est Glom Filt Rate - Afr Amer 39 mL/min (>60); Free T3 1.7 pg/mL (2.18-3.98); Globulin 3.4 g/dL (2.2-4.2); Glucose 84 mg/dL (74-106); Potassium 3.9 mmol/L (3.5-5.1); Protein, Total 6.8 g/dL (6.4-8.2); Sodium Level 140 mmol/L (136-145); T4 Free Direct 0.83 ng/dL (0.76-1.46); Thyroid Stim Hormone (TSH) 1.41 uIU/mL (0.358-3.74)
== END | disposition home or self-care (01) ==
LOC: BFHLAB 15:22
PROVIDERS: PCP Family Medicine; Visit Provider Family Medicine
DX: E03.9 Hypothyroidism, unspecified (principal); Z51.81 Encounter for therapeutic drug level monitoring
CPT/HCPCS: 36415; 80053; 84439; 84443; 84481

== ENCOUNTER → 2023-10-11 | Outpatient (CLI) | payer MEDICARE, MEDICAID, SELFPAY ==
--- NOTE | 2023-10-11 13:12 | ART_ITS ---
Reason For Study: PVD Procedure A bilateral lower extremity continuous wave Doppler with analog waveform analysis and ankle brachial indexes. Left Segmental Pressures Left brachial= 131mmHg. Left posterior tibial artery = 158mmHg. Left dorsalis pedis artery = 151mmHg. The left posterior tibial artery waveforms are triphasic. The left dorsalis pedis waveforms are triphasic. Right Segmental Pressures Right brachial= 124mmHg. Right posterior tibial artery = 144mmHg. Right dorsalis pedis artery = 146mmHg. The right posterior tibial artery waveforms are triphasic. The right dorsalis pedis waveforms are triphasic. Indices The right resting ankle brachial index is 1.11. The right ankle brachial index by the posterior tibial artery is 1.10. The right ankle brachial index by the dorsalis pedis is 1.11. The left resting ankle brachial index is 1.21. The left ankle brachial index by the posterior tibial artery is 1.21. The left ankle brachial index by the dorsalis pedis is 1.18. VL/Ankle Brachial Index Interpretation Summary Triphasic Doppler waveforms are noted at ankle level bilaterally. Pulse-volume recordings appear satisfactory at ankle level bilaterally. Resting ankle-brachial indices are nor mal bilaterally. There is no evidence of significant arterial occlusive disease in the lower ext remities bilaterally. Ordering Physician: Deloris Bradshaw Referring Physician: DELORIS BRADSHAW MD Performed By: Niya Ortega RVLeighton, RDCS
== END | disposition home or self-care (01) ==
PROVIDERS: PCP Family Medicine; Referring Provider Family Medicine; Visit Provider Family Medicine
DX: I73.9 Peripheral vascular disease, unspecified (principal)
CPT/HCPCS: 93922

== ENCOUNTER 2024-06-21 17:52 | Emergency (ER) | payer MEDICAID, MEDICARE, SELFPAY ==
[2024-06-21 17:53] VITALS: BP 130/95; PULSE 89; RESP 16; TEMP 36.4; O2SAT 99; BMI 34.2
--- NOTE | 2024-06-21 17:57 | RAD_ITS ---
PROCEDURE: Right knee radiographs REASON FOR EXAM: Pain, trauma TECHNIQUE: Four views of the right knee COMPARISON: None. FINDINGS: See impression RAD/Knee 4 or More Views IMPRESSION: Negative for acute fracture or malalignment. Intact right total knee prosthesi s without complicating features. Moderate joint effusion. Reading Location: [facility]
--- NOTE | 2024-06-21 18:06 | ED.VIS.LOWEX ---
HPI History of Present Illness HPI Narrative: 69-year-old female history of bilateral knee replacements. Using her walker today daughter fletcher tripped fell landing on a carpeted floor on top of cement complaining of right knee pain. Did not hit her head. Denies any other complaints. Chief Complaint: Lower Extremity Injury Occured/Mechanism Mechanism/Context: Yes injury and Yes blunt trauma Onset/Context/Timing Onset: Today and Hours Context: Sudden Onset Timing: Continuous Quality of Pain: Sharp Current Severity: Moderate Maximum Severity: Moderate Associated Symptoms Associated Symptoms: Negative for Parasthesia, Weakness or Loss of Funtion Narrative Narrative: 69-year-old female bilateral knee replacements tripped and fell today using her walker landing on her right knee on the floor. Complaining of pain. No other injuries. Did not hit her head. Is not on blood thinners. Prior similar symptoms: No Recent Illness/Hospitalization: No [facility], [facility] Medical History Asthma COPD (chronic obstructive pulmonary disease) Hypothyroidism Anxiety Muscle spasm Hyperlipidemia Hypertension Home Medications ?Medication ?Instructions ?Recorded ?Last Taken ?Type multivitamin with folic acid 400 1 tab PO DAILY 02/03/14 08/27/14 History mcg tablet (Thera) pravastatin 40 mg tablet 20 mg PO DAILY 08/27/14 08/27/14 History aspirin 81 mg chewable tablet 81 mg PO DAILY@0800 ##30 09/02/14 Unknown Rx metoprolol tartrate 25 mg tablet 25 mg PO BID #60 tabs 09/02/14 05/17/15 09:00 Rx pantoprazole 40 mg tablet,delayed 40 mg PO DAILY ##20 09/02/14 05/17/15 09:00 Rx release [id number] 2 cap PO TID PRN PRN Moderate Pain 03/29/15 Unknown History 50 mg-300 mg-40 mg capsule (Fioricet) Beclomethasone Diprop Inhaler 2 puff inhalation BID 09/09/16 Unknown History [Qvar 80 Mcg Inhaler] oxycodone-acetaminophen 5 mg-325 1 tab PO Q6H PRN PRN pain #14 tabs 04/11/17 Unknown Rx mg tablet diazepam 5 mg tablet 10 mg PO BID PRN PRN 12/21/19 Unknown History Anxiety/Agitation hydrocodone-acetaminophen 5-325mg 1 tab PO Q6H PRN PRN Pain 3 days 07/12/23 Unknown Rx 5mg-325mg #10 TABLETS hydrocodone-acetaminophen 5-325mg 1 tab PO Q4H PRN pain 4 days #16 06/21/24 Unknown Rx 5mg-325mg tabs Allergy/AdvReac Type Severity Reaction Status Date / Time celecoxib (From Celebrex) Allergy Hives Verified 06/21/24 17:54 naproxen Allergy Hives Verified 06/21/24 17:54 baclofen AdvReac Nausea Verified 06/21/24 17:54 Surgical History History of knee replacement procedure of left knee History of knee replacement procedure of right knee Social History Smoking Status: Heavy Smoker (>10/day) ROS ROS ED ROS Narrative Denies recent. Constitutional Constitutional ED: Denies chills or fever(s) Eyes Eyes: Denies blurry vision ENT ENT ED: Denies ear pain Cardiovascular Cardiovascular: Denies chest pain Respiratory/Chest Respiratory/Chest: Denies cough or dyspnea Gastrointestinal Gastrointestinal: Denies abdominal pain Genitourinary Genitourinary ED: Denies dysuria or hematuria Musculoskeletal Musculoskeletal: Denies arthralgias or back pain Integumentary Denies abscess or Abrasions Neurologic Neurologic: Denies headache(s) Psychiatric Psychiatric: Denies anxiety or depression Endocrine Endocrinology: Denies polydipsia or polyphagia Hematologic/Lymphatic Hematologic/Lymphatic: Denies easy bleeding, easy bruising or lymphadenopathy Allergic/Immunologic Allergic/Immunologic ED: Denies mouth swelling, tongue swelling or urticaria EXAM Physical Exam Narrative Exam Narrative: 69-year-old female sitting upright in bed. Vital signs are stable and afebrile. Complaining of right knee pain. Family present in the room. H EENT exam pupils round react to light. No trauma or tenderness to her face or scalp. No hematoma. No bruising. Neck and trachea nontender. Back and spine nontender. Lungs coarse breath sounds she has COPD. Heart regular rhythm rate about 90 no murmur. Chest wall ribs nontender. Abdomen soft nontender. Pelvic girdle intact. Hips nontender. No shortening or rotation. Right knee has an abrasion and contusion. She has limited flexion and extension due to pain. Extensor mechanism is intact. She has trouble lifting off the bed due to pain. Dorsi plantarflexion intact of the right foot and ankle. Normal sensation. Left lower extremity nontender. Well-healed left knee anterior surgical scar. Dorsi and plantarflexion intact. Upper extremities normal range of motion. Nontender no deformity. 5 out of 5 [employer] principal strength. Neurologically she is awake and alert. Answering questions following commands. GCS 15. Const Vital Signs: 06/21/24 17:53 Temperature 97.6 F L Temperature Source Temporal Pulse Rate 89 Respiratory Rate 16 Blood Pressure 130/95 H Blood Pressure Mean 106 Pulse Ox 99 Oxygen Delivery Method Room Air Positive well nourished and well developed; Negative for cachectic, contractures or unkempt General Appearance ED: well developed and NAD; Negative for unkempt, cachectic or contractures Nutritional Appearance: Negative for cachectic HEENT Reports moist mucous membranes normocephalic and atraumatic; Negative for trauma or tenderness Eyes PERRL Neck full ROM and supple Thyroid: Negative for tender Chest Wall inspection of chest normal and palpation of chest normal Resp normal respiratory effort, no retractions and clear to auscultation bilaterally Effort and Inspection: Negative for pain with movement Auscultation: Negative for rales, rhonchi, wheezes or diminished lung sounds Cardio regular rate, regular rhythm, S1 normal heart sound, S2 normal heart sound and no murmurs Rate: Negative for bradycardia or tachycardic Rhythm: Negative for abnormal rhythm GI non-tender, non-distended and no masses Inspection: Negative for abdominal distention Auscultation: normoactive bowel sounds Palpation: soft and tender; Negative for guarding or rebound tenderness present Back/Spine no CVA tenderness General Back: Negative for CVA tenderness Cervical Spine: Negative for cervical spine tenderness Thoracic Spine / Upper Back: Negative for thoracic spinal tenderness Lumbar Spine / Lower Back: Negative for lumbar spinal tenderness Extremity normal to inspection and full ROM Extremity Narrative: Except right knee. Contusion and abrasion. Limited flexion extension due to pain. No deformity. Well-healed surgical scar. Mild swelling. No large effusion. Right hip proximal right femur right lower leg, ankle and foot are nontender neurovascularly intact. Neuro oriented x3, CN's II-XII intact bilaterally, moves all extremities and no sensory deficits noted Sensorium / Orientation: alert, oriented to person, oriented to place and oriented to time; Negative for orientation impaired, confused or lethargic Motor Exam: strength 5/5 throughout Psych mental status grossly normal Appearance: Negative for unkempt Skin no wounds Skin Narrative: Abrasion right knee. Contusion right knee. Lesions: no lesions Rashes: no rashes Trauma: abrasion MDM MDM MDM Narrative Medical decision making narrative: 69-year-old female tripped and fell at home and injuring her right knee. Prior knee replacement. X-ray being obtained. Prior knee replacement. [place] for pain. Repeat exam at 6:57 PM patient doing better after the [place]. We went over x-ray results. Exam unchanged. She will be discharged home. Treated as a knee contusion. Ice. [place] for pain. Follow-up if not improving. She already has a walker at home she uses. History & Record Review Discussion w/independent historian: Patient and Family Radiography Diagnostic Testing: Clinical Impression(s) from Imaging Studies Knee X-Ray 06/21/24 17:57 IMPRESSION: Negative for acute fracture or malalignment. Intact right total knee prosthesis without complicating features. Moderate joint effusion. Reading Location: [facility] Right knee x-ray, 4 views, myself and the radiologist. Shows no fracture. Joint effusion. Prior prosthesis. No fracture. No malalignment. No dislocation. Discharge Plan Triage Chief Complaint: Lower Extremity Injury ED Provider: Chuck Lezama Dx/Rx/DC Orders Clinical Impression: Fall, Contusion of knee, right, History of bilateral knee replacement, History of COPD Instructions: ED Contusion, Lower Extremity Prescriptions: New hydrocodone-acetaminophen 5-325 mg tablet 1 tab PO Q4H PRN (Reason: pain) 4 Days Qty: 16 0RF No Action multivitamin with folic acid [Thera] 1 TABLET tablet 1 tab PO DAILY Patient Comments: supplement pravastatin 40 MG tablet 20 mg PO DAILY Patient Comments: cholesterol pantoprazole 40 MG tablet 40 mg PO DAILY Qty: 20 0RF Patient Comments: acid in stomach aspirin 81 MG tablet,chewable 81 mg PO DAILY@0800 Qty: 30 0RF Patient Comments: blood thinner metoprolol tartrate 25 MG tablet 25 mg PO BID Qty: 60 0RF [id number] [Fioricet] 1 EACH capsule 2 cap PO TID PRN PRN (Reason: Moderate Pain) Beclomethasone Diprop Inhaler [Qvar 80 Mcg Inhaler] 1 PUFF inhaler 2 puff inhalation BID oxycodone-acetaminophen 1 TABLET tablet 1 tab PO Q6H PRN PRN (Reason: pain) Qty: 14 0RF diazepam 5 MG tablet 10 mg PO BID PRN PRN (Reason: Anxiety/Agitation) hydrocodone-acetaminophen 5-325 mg tablet 1 tab PO Q6H PRN PRN (Reason: Pain) 3 Days Qty: 10 0RF Primary Care Provider: Deloris Bradshaw Referrals: Deloris Bradshaw DO [Primary Care Provider] - 10-14 Days if not better Activity Restrictions/Additional Instructions: Ice to your knee 4-5 times a day 30 minutes at a time. Decrease pain and swelling. [place] for more severe pain. That is a narcotic pain medication. Do not drink or drive while using it. Make sure you are taking plenty of fluids, fiber, fruits and vegetables prevent constipation. You might need a stool softener. This should progressively start feeling better over the next 1 to 2 weeks. If not follow-up with your doctor. Print Language: [place] Disposition Disposition: Home, Self Care
[2024-06-21] MEDS: HYDROcodone Bitartrate/Apap 5/325 Tablet PO (18:14)
== END 2024-06-21 19:22 | disposition home or self-care (01) ==
PROVIDERS: Emergency Provider Emergency Medicine; PCP Family Medicine; Visit Provider Emergency Medicine
DX: S80.01XA Contusion of right knee, initial encounter (principal); J44.9 Chronic obstructive pulmonary disease, unspecified; S80.211A Abrasion, right knee, initial encounter; W01.0XXA Fall on same level from slipping, tripping and stumbling without subsequent striking against object, initial encounter; I10 Essential (primary) hypertension; E78.5 Hyperlipidemia, unspecified; F41.9 Anxiety disorder, unspecified; F17.200 Nicotine dependence, unspecified, uncomplicated; Z96.653 Presence of artificial knee joint, bilateral; Z79.82 Long term (current) use of aspirin; Z79.899 Other long term (current) drug therapy
CPT/HCPCS: 73564; 99282